=== PATIENT | female | born 1940 | race Caucasian/White ===

== ENCOUNTER 2016-07-02 12:36 | Inpatient (IN) | payer OTHER, BC ==
[~2016-07-02] VITALS: Ht 162.6 cm; Wt 86.3 kg
[~2016-07-02 12:36] MED LIST: ACET1TAB84 PO; ALBUAER2 INH; ATR25 PO; BND25X PO; CNT PO; DTRSR4 PO; GABA-113 PO; GEMF600T3 PO; GLC500 PO; IMD/2 PO; MOME50SP5 NAE; PRLSR20 PO; SYN75 PO
[2016-07-02] MEDS ORDERED: SYN75 PO (13:21)
[2016-07-02] MEDS ORDERED: MOME6000 (13:21)
[2016-07-02] MEDS ORDERED: VNTHFA/IN INH (13:21)
[2016-07-02] MEDS ORDERED: OMEP20CA9 PO (13:21)
[2016-07-02] MEDS ORDERED: GLC500 PO (13:21)
[2016-07-02] MEDS ORDERED: ATR25 PO (13:21)
[2016-07-02] MEDS ORDERED: TOLT4CAP PO (13:21)
[2016-07-02] MEDS ORDERED: MELA10TA2 PO (13:22)
[2016-07-02] MEDS ORDERED: ASPI81TA28 PO (13:22)
[2016-07-02] MEDS ORDERED: SODIUM CHLORIDE 0.9% 1000ML 1,000 ML IV SCH (14:02)
[2016-07-02] MEDS ORDERED: ONDANSETRON INJ 2 MG/ML 2 ML VIAL IV STA (14:05)
--- NOTE | 2016-07-02 14:10 | EMERGENCY ROOM VISIT NOTE ---
History Report prepared by Chava: Tashi Pollard Under the Supervision of: Dr. Nikolay Dawn D.O. First contact with patient: 13:51 Chief Complaint: HEADACHE Stated Complaint: SEVERE HEADACHE X3 DAYS History of Present Illness The patient is a 75 year old female who presents to the Emergency Room with complaints of a resolved episode of speech slurring that occurred three nights ago. The patient was sitting in bed when she was having trouble speaking and slurring her speech, as per her . He could not make out anything she was saying. The episode lasted approximately 5 minutes, and the patient returned to baseline afterwards. The symptoms resemble a TIA she had years ago. The patient denies any facial drooping, weakness or numbness of the extremities, or difficulty ambulating. She has had a persistent headache for the past three days , including when she had the speech slur. The patient vomited that same night. She also has some neck pain. The patient denies any fevers, chest pain, urinary symptoms, or rashes. The patient has not seen her primary doctor since the speech slurring episode. She has a history of atrial fibrillation but is not currently on any blood thinners. She denies any history of cancer. Source of History: patient, spouse/significant other Onset: three nights ago Position: other (global) Quality: other (speech slurring) Timing: resolved Associated Symptoms: + headache, + neck pain, + vomiting, No chest pain, No fevers, No numbness, No rash, No urinary symptoms, No weakness Review of Systems See HPI for pertinent positives & negatives. A total of 10 systems reviewed and were otherwise negative. Past Medical & Surgical Medical Problems: (1) Asthma (2) CKD (chronic kidney disease), stage III (3) CVA (cerebral vascular accident) (4) DM type 2 (diabetes mellitus, type 2) (5) Dyslipidemia (6) GERD (gastroesophageal reflux disease) (7) HTN (hypertension) (8) Hypothyroidism (9) IBS (irritable bowel syndrome) Surgical Problems: (1) History of appendectomy (2) History of hysterectomy (3) History of total right knee replacement (4) S/P lumbar fusion (5) Status post left partial knee replacement Family History FH: HTN (hypertension) FH: cancer FH: diabetes mellitus Social History Smoking Status: Never Smoker Alcohol Use: none Marital Status: Current/Historical Medications Scheduled Albuterol Hfa (Ventolin Hfa), 2-4 PUFFS INH Q6H Cetirizine (Zyrtec), 10 MG PO DAILY PRN Gabapentin (Neurontin), 100 MG PO TID Hyoscyamine Sulfate (Levsin), 0.125 MG PO DAILY PRN Levothyroxine Sodium (Synthroid), 75 MCG PO DAILY Loperamide Hcl (Imodium), 2 MG PO BID PRN Losartan Potassium (Cozaar), 1 TAB PO DAILY Melatonin (Melatonin), 10 MG PO HS Metformin HCl (Metformin HCl), 500 MG PO BID Omeprazole (Prilosec), 20 MG PO DAILY Simvastatin (Zocor), 40 MG PO HS Sitagliptin Phosphate (Januvia), 1 TAB PO DAILY Tramadol Hcl (Ultram), 50 MG PO Q8HR PRN Scheduled PRN Hydroxyzine HCl (Hydroxyzine HCl), 25 MG PO Q6H PRN for Itching Mometasone Furoate (Nasal) (Mometasone Furoate), 2 SPRAYS NA DAILY PRN for congestion Allergies Coded Allergies: Cephalosporins (Verified Allergy, Intermediate, Rash, tongue swells, ) Latex1 -Allergic Contact Dermititis (Unverified Allergy, Intermediate, LIP SWELLS, 07/02/16) Penicillins (Verified Allergy, Intermediate, Rash, tongue swells, 07/02/16) KIMMY Inhibitors (Verified Allergy, Mild, OTHER, 07/02/16) TONGUE SWOLLEN Aspirin (Verified Allergy, Unknown, 07/02/16) Cortisone (Verified Allergy, Unknown, Unknown Rxn, 07/02/16) Furosemide (Verified Allergy, Unknown, 07/02/16) Iodine (Verified Allergy, Unknown, Unknown rxn, 07/02/16) Piroxicam (Verified Allergy, Unknown, Unknown Rxn, 07/02/16) Sulfa Drugs (Verified Allergy, Unknown, 07/02/16) Sulfamethoxazole (Verified Allergy, Unknown, 07/02/16) Physical Exam Vital Signs Date Time Temp Pulse Resp B/P Pulse Ox O2 Delivery O2 Flow Rate FiO2 07/02/16 19:35 92 18 124/100 98 Room Air 07/02/16 17:59 94 18 175/76 96 Room Air 07/02/16 15:45 91 18 176/85 97 Room Air 07/02/16 14:51 96 Room Air 07/02/16 14:48 76 16 173/91 98 Room Air 07/02/16 12:46 36.8 81 18 204/97 99 Room Air Physical Exam GENERAL: Patient is awake, alert, and in no acute distress. Patient is resting comfortably and showing no signs of anxiety EYES: The conjunctivae are clear. The pupils are round and reactive. EARS, NOSE, MOUTH AND THROAT: The nose is without any evidence of any deformity. Mucous membranes are moist tongue is midline NECK: The neck is nontender and supple. RESPIRATORY: Normal respiratory effort is noted there is no evidence of wheezing rhonchi or rales CARDIOVASCULAR: Regular rate and rhythm noted there no murmurs rubs or gallops normal S1 normal S2 GASTROINTESTINAL: The abdomen is soft. Bowel sounds are present in all quadrants. Abdomen is nontender MUSCULOSKELETAL/EXTREMITIES: There is no evidence of gross deformity full range of motion is noted in the hips and shoulders SKIN: There is no obvious evidence of any rash. There are no petechiae, pallor or cyanosis noted. Trace pedal edema noted bilaterally. NEUROLOGIC: Patient is awake alert and oriented x3 strength is symmetric patellar reflexes are 2+ bilaterally Medical Decision & Procedures ER Provider Diagnostic Interpretation: Radiology results as stated below per my review and radiologist interpretation: CT HEAD WITHOUT CONTRAST (CT) CLINICAL HISTORY: Persistent frontal headache, stroke like symptoms. COMPARISON STUDY: No previous studies for comparison. TECHNIQUE: Axial CT of the brain is performed from the vertex to the skull base. IV contrast was not administered for this examination. CT DOSE: 537.48 mGy.cm FINDINGS: No intra or extra-axial mass lesions are visualized. There is no CT evidence of acute cortical infarction. There is no evidence of midline shift. There is no acute hemorrhage. No calvarial fractures are visualized. There are patchy white matter hypodensities likely on a small vessel basis. There is an old lacunar infarct involving the right caudate and anterior aspect of the right lentiform nucleus. There is no evidence of pathologic ventricular dilatation. There is no evidence of acute sinusitis IMPRESSION: Old right basal ganglial infarct. No acute intracranial findings. Electronically signed by: Stewart Urias M.D. 07/02/2016 3:20 PM Dictated Date/Time: 07/02/2016 3:19 PM CHEST ONE VIEW PORTABLE CLINICAL HISTORY: Stroke dyspnea COMPARISON STUDY: 10/13/2009 FINDINGS: The bones soft tissues and hemidiaphragms are normal. The cardiomediastinal silhouette is normal. The lungs are clear. The pulmonary vasculature is normal. IMPRESSION: Negative chest. Electronically signed by: Tim Jara M.D. 07/02/2016 2:36 PM Dictated Date/Time: 07/02/2016 2:36 PM Laboratory Results Test 07/02/16 14:35 07/02/16 15:51 Immature Granulocyte % (Auto) 0.1 % White Blood Count 8.22 K/uL (4.8-10.8) Red Blood Count 4.39 M/uL (4.2-5.4) Hemoglobin 13.0 g/dL (12.0-16.0) Hematocrit 38.9 % (37-47) Mean Corpuscular Volume 88.6 fL (80-100) Mean Corpuscular Hemoglobin 29.6 pg (25-34) Mean Corpuscular Hemoglobin Concent 33.4 g/dl (32-36) Platelet Count 223 K/uL (130-400) Mean Platelet Volume 10.5 fL (7.4-10.4) Neutrophils (%) (Auto) 76.4 % Lymphocytes (%) (Auto) 15.3 % Monocytes (%) (Auto) 5.7 % Eosinophils (%) (Auto) 2.3 % Basophils (%) (Auto) 0.2 % Neutrophils # (Auto) 6.27 K/uL (1.4-6.5) Lymphocytes # (Auto) 1.26 K/uL (1.2-3.4) Monocytes # (Auto) 0.47 K/uL (0.11-0.59) Eosinophils # (Auto) 0.19 K/uL (0-0.5) Basophils # (Auto) 0.02 K/uL (0-0.2) Immature Granulocyte # (Auto) 0.01 K/uL (0.00-0.02) Prothrombin Time 10.5 SECONDS (9.0-12.0) Prothromb Time International Ratio 1.0 (0.9-1.1) Activated Partial Thromboplast Time 27.6 SECONDS (21.0-31.0) Partial Thromboplastin Ratio 1.1 Magnesium Level 1.4 mg/dl (1.8-2.4) Total Bilirubin 0.3 mg/dl (0.2-1) Direct Bilirubin < 0.1 mg/dl (0-0.2) Aspartate Amino Transf (AST/SGOT) 15 U/L (15-37) Alanine Aminotransferase (ALT/SGPT) 21 U/L (12-78) Alkaline Phosphatase 76 U/L (45-117) Total Creatine Kinase 66 U/L (26-192) Creatine Kinase MB 1.3 ng/ml (0.5-3.6) Creatine Kinase MB Ratio 2.0 (0-3.0) Troponin I < 0.015 ng/ml (0-0.045) Total Protein 6.6 gm/dl (6.4-8.2) Albumin 3.6 gm/dl (3.4-5.0) Urine Color YELLOW Urine Appearance CLEAR (CLEAR) Urine pH 6.0 (4.5-7.5) Urine Specific [place] 1.024 (1.000-1.030) Urine Protein 1+ (NEG) Urine Glucose (UA) NEG (NEG) Urine Ketones TRACE (NEG) Urine Occult Blood NEG (NEG) Urine Nitrite NEG (NEG) Urine Bilirubin NEG (NEG) Urine Urobilinogen NEG (NEG) Urine Leukocyte Esterase NEG (NEG) Urine WBC (Auto) 1-5 /hpf (0-5) Urine RBC (Auto) 0-4 /hpf (0-4) Urine Hyaline Casts (Auto) 1-5 /lpf (0-5) Urine Epithelial Cells (Auto) >30 /lpf (0-5) Urine Bacteria (Auto) NEG (NEG) Urine Opiates Screen POS (NEG) Urine Methadone, Qualitative NEG (NEG) Urine Barbiturates NEG (NEG) Urine Phencyclidine (PCP) Level NEG (NEG) Ur Amphetamine/Methamphetamine NEG (NEG) MDMA (Ecstasy) Screen NEG (NEG) Urine Benzodiazepines Screen NEG (NEG) Urine Cocaine Metabolite NEG (NEG) Urine Marijuana (THC) NEG (NEG) Laboratory results per my review. Medications Administered Medications (Trade) Dose Ordered Sig/Link Route Start Time Stop Time Status Last Admin Dose Admin Sodium Chloride (Nss 1000ml) 1,000 ml @ 50 mls/hr Q20H IV 07/02/16 14:02 07/03/16 01:43 DC 07/02/16 22:40 50 MLS/HR Ondansetron HCl (Zofran Inj) 4 mg NOW STAT IV 07/02/16 14:05 07/02/16 14:06 DC 07/02/16 14:50 4 MG Morphine Sulfate (MoRPHine SULFATE INJ) 4 mg Q15M PRN IV 07/02/16 14:15 07/03/16 01:43 DC 07/02/16 15:45 4 MG Acetaminophen (Tylenol Tab) 650 mg Q4H PRN PO 07/02/16 17:45 08/01/16 17:44 07/02/16 18:00 650 MG Ondansetron HCl (Zofran Inj) 4 mg Q6H PRN IV 07/02/16 17:45 08/01/16 17:44 07/02/16 23:36 4 MG Tramadol HCl (Ultram Tab) 50 mg Q8H PRN PO 07/02/16 18:00 08/01/16 17:59 07/03/16 07:44 50 MG ECG Indication: weakness Rate (beats per minute): 78 Rhythm: normal sinus Findings: PAC, no acute ischemic change Change: no significant change (10/26/2009) ED Course 1400: The patient was evaluated in room B4b. A complete history and physical examination were performed. 1402: NSS 1000 ml @ 50 mls/hr. 1405: Zofran 4 mg IV. 1415: Morphine Sulfate 4 mg IV. 1630: Updated the patient. 1639: Spoke with Nelda Pina PA-C, [facility]. The patient will be evaluated. Medical Decision Prior records/ancillary studies reviewed. Triage Nursing notes reviewed and agree them. The patient's history was concerning for headache. Differential diagnosis: Etiologies such as migraine headache, meningitis, sinusitis, CO exposure, ICH, SAH, infection, tumor, headache, sinus thrombosis, arterial dissection, as well as others were entertained. The patient is a 75-year-old female who presented to the emergency department for an evaluation of headache. The patient's significant other presented to the emergency department with her and states that she started having very severe symptoms over the weekend which she felt were consistent with stroke. He describes right facial droop and dysarthria. She apparently had a similar episode in the past. She does not have a history of known strokes but on CAT scan she was found have signs of a previous stroke. This did not appear to be in an area of the brain that would explain the symptoms over the weekend. I do feel this makes her at higher risk for having another CVA especially given her symptoms that she had over the weekend. The patient was treated with IV fluids and IV pain medication for the headache and felt much better on subsequent reevaluation. I discussed the patient's laboratory and radiographic studies with her. I also [facility] They've agreed to evaluate the patient in emergency department for further management and disposition. Consults Time Called: 1629 Consulting Physician: Nelda Pina PA-C, Kathleen Rodrigues. Returned Call: [phone]: Spoke with Nel[facility] Pina PA-C, [facility] The patient will be evaluated. Impression Primary Impression: TIA (transient ischemic attack) Additional Impression: Right-sided headache Scribe Attestation The scribe's documentation has been prepared under my direction and personally reviewed by me in its entirety. I confirm that the note above accurately reflects all work, treatment, procedures, and medical decision making performed by me. Departure Information Dispostion Being Evaluated By Hospitalist Referrals Lloyd Tse D.O. (PCP) Patient Instructions My [facility] Problem Qualifiers Primary Impression: TIA (transient ischemic attack) Transient cerebral ischemia type: unspecified Qualified Codes: G45.9 - Transient cerebral ischemic attack, unspecified
--- NOTE | 2016-07-02 14:37 | DIAGNOSTIC IMAGING REPORT ---
CHEST ONE VIEW PORTABLE CLINICAL HISTORY: Stroke dyspnea COMPARISON STUDY: 10/13/2009 FINDINGS: The bones soft tissues and hemidiaphragms are normal. The cardiomediastinal silhouette is normal. The lungs are clear. The pulmonary vasculature is normal. IMPRESSION: Negative chest. Electronically signed by: Tim Jara M.D. 07/02/2016 2:36 PM Dictated Date/Time: 07/02/2016 2:36 PM
[2016-07-02] MEDS: MoRPHine SULFATE 4 MG/ML 1 ML CARP\\VIAL IV PRN ×2 (14:50→15:45)
[2016-07-02 14:55] LABS: BASO % 0.2 %; BASO ABS # 0.02 K/uL (0-0.2); COMPLETE YES; EOS % 2.3 %; HEMATOCRIT 38.9 % (37-47); IG% 0.1 %; LYMPH % 15.3 %; LYMPH ABS # 1.26 K/uL (1.2-3.4); MEAN CELL VOLUME 88.6 fL (80-100); MEAN CORPUSCULAR HEMOGLOBIN 29.6 pg (25-34); MEAN CORPUSCULAR HGB CONC 33.4 g/dl (32-36); MEAN PLATELET VOLUME 10.5 fL (7.4-10.4); MONO % 5.7 %; NEUT % 76.4 %; PLATELET COUNT 223 K/uL (130-400); RED BLOOD COUNT 4.39 M/uL (4.2-5.4); WHITE BLOOD COUNT 8.22 K/uL (4.8-10.8)
[2016-07-02 15:08] LABS: PARTIAL THROMBOPLASTIN RATIO 1.1; PROTHROMBIN TIME (PATIENT) 10.5 SECONDS (9.0-12.0)
[2016-07-02 15:12] LABS: ALT/SGPT 21 U/L (12-78); AST/SGOT 15 U/L (15-37); BLOOD UREA NITROGEN 11 mg/dl (7-18); BUN/CREATININE RATIO 9.5 (10-20); CALCIUM 8.3 mg/dl (8.5-10.1); CARBON DIOXIDE 29 mmol/L (21-32); CHLORIDE 103 mmol/L (98-107); GLUCOSE 109 mg/dl (70-99); POTASSIUM 3.3 mmol/L (3.5-5.1); SODIUM 141 mmol/L (136-145)
[2016-07-02] MEDS ORDERED: CETI10TA84 PO (15:13)
[2016-07-02] MEDS ORDERED: SIMV40TA2 PO (15:13)
[2016-07-02] MEDS ORDERED: TRAZ50TA35 PO (15:13)
[2016-07-02 15:17] LABS: ALKALINE PHOSPHATASE 76 U/L (45-117)
--- NOTE | 2016-07-02 15:21 | DIAGNOSTIC IMAGING REPORT ---
CT HEAD WITHOUT CONTRAST (CT) CLINICAL HISTORY: Persistent frontal headache, stroke like symptoms. COMPARISON STUDY: No previous studies for comparison. TECHNIQUE: Axial CT of the brain is performed from the vertex to the skull base. IV contrast was not administered for this examination. CT DOSE: 537.48 mGy.cm FINDINGS: No intra or extra-axial mass lesions are visualized. There is no CT evidence of acute cortical infarction. There is no evidence of midline shift. There is no acute hemorrhage. No calvarial fractures are visualized. There are patchy white matter hypodensities likely on a small vessel basis. There is an old lacunar infarct involving the right caudate and anterior aspect of the right lentiform nucleus. There is no evidence of pathologic ventricular dilatation. There is no evidence of acute sinusitis IMPRESSION: Old right basal ganglial infarct. No acute intracranial findings. Electronically signed by: Stewart Urias M.D. 07/02/2016 3:20 PM Dictated Date/Time: 07/02/2016 3:19 PM
[2016-07-02 17:16] LABS: URINE APPEARANCE CLEAR (CLEAR); URINE BILIRUBIN NEG (NEG); URINE COLOR YELLOW; URINE EPITHELIAL CELL AUTO >30 /lpf (0-5); URINE NITRITE NEG (NEG); URINE SPECIFIC GRAVITY 1.024 (1.000-1.030); UROBILINOGEN NEG (NEG)
[2016-07-02 17:28] LABS: BENZODIAZEPINE, URINE NEG (NEG); COCAINE,URINE NEG (NEG); PHENCYCLIDINE, URINE NEG (NEG)
[2016-07-02 17:30] LABS: MANUAL MICROSCOPIC REQUIRED? NO; REVIEW REQ? NO
[2016-07-02] MEDS ORDERED: ONDANSETRON INJ 2 MG/ML 2 ML VIAL IV PRN (17:45)
[2016-07-02] MEDS ORDERED: ACETAMINOPHEN 325 MG TAB PO PRN (17:45)
[2016-07-02] MEDS ORDERED: LOSA1TAB PO (17:53)
[2016-07-02] MEDS ORDERED: SITA50TA PO (17:53)
[2016-07-02] MEDS ORDERED: GABA-112 PO (17:53)
[2016-07-02] MEDS ORDERED: DEXTROSE 50% 50 ML SYR IV PRN (18:00)
[2016-07-02] MEDS ORDERED: GLUCAGON FOR INJ 1 MG VIAL SQ PRN (18:00)
[2016-07-02] MEDS ORDERED: GLUCOSE 10 TABS/TUBE PO PRN (18:00)
[2016-07-02] MEDS ORDERED: PHARMACIST DISCHARGE MED REC CONSULT PRN (18:00)
[2016-07-02] MEDS ORDERED: GLUCOSE 40% GEL 15 GM TUBE PO PRN (18:00)
[2016-07-02] MEDS ORDERED: TRAMADOL HCL 50 MG TAB PO PRN (18:00)
--- NOTE | 2016-07-02 19:01 | History and Physical ---
History & Physical Date & Time of Service: Jul 02, 2016 at 18:45 Chief Complaint: Headache Primary Care Physician: Lloyd Tse D.OEtelvina History of Present Illness 75 year old female who presents to the ER with headache. Patient reports 4 days ago she woke up with a frontal headache. Later in the day she had right sided facial droop and difficulty speaking and slurring of her words. reports this last 5 minutes and resolved on its own. Patient has history of CVA a few years ago that presented with similar symptoms. She reports she was never told to take aspirin and has an allergy to it. The same day she reports some nausea and vomiting. She denies hematemesis or coffee ground emesis. Patient denies any unilateral weakness, numbness, or tingling. She reports mild dizziness but no syncopal events. She denies any further episodes of facial droop or slurred speech. Patient reports her headache has been persistent. She reports it is located frontal, temporal, and on top of her head. She denies blurred or double vision. No chest pain or shortness of breath. No abdominal pain or diarrhea. She denies fever and chills. No urinary symptoms. In the ER, patient's BP was elevated 204/97 however is improving on it's own. Patient reports to feeling anxious when she first arrived. She reports her headache has improved. CT head is negative. Labs are unremarkable. Past Medical/Surgical History Medical Problems: (1) Asthma Status: Chronic (2) CKD (chronic kidney disease), stage III Status: Chronic (3) CVA (cerebral vascular accident) Status: Chronic (4) DM type 2 (diabetes mellitus, type 2) Status: Chronic (5) Dyslipidemia Status: Chronic (6) GERD (gastroesophageal reflux disease) Status: Chronic (7) HTN (hypertension) Status: Chronic (8) Hypothyroidism Status: Chronic (9) IBS (irritable bowel syndrome) Status: Chronic Surgical Problems: (1) History of appendectomy Status: Chronic (2) History of hysterectomy Status: Chronic (3) History of total right knee replacement Status: Chronic (4) S/P lumbar fusion Status: Chronic (5) Status post left partial knee replacement Status: Chronic Social History Smoking Status: Never Smoker Alcohol Use: occasionally Marital Status: Housing status: lives with family Immunizations History of Influenza Vaccine: Yes Influenza Vaccine Date: May 07, 2016 History of Tetanus Vaccine?: Yes Tetanus Immunization Date: Mar 09, 2015 History of Pneumococcal: Yes Pneumococcal Date: Feb 23, 2015 Multi-Drug Resistant Organisms History of MDRO: No Allergies Coded Allergies: Cephalosporins (Verified Allergy, Intermediate, Rash, tongue swells, ) Latex1 -Allergic Contact Dermititis (Unverified Allergy, Intermediate, LIP SWELLS, 07/02/16) Penicillins (Verified Allergy, Intermediate, Rash, tongue swells, 07/02/16) KIMMY Inhibitors (Verified Allergy, Mild, OTHER, 07/02/16) TONGUE SWOLLEN Aspirin (Verified Allergy, Unknown, 07/02/16) Cortisone (Verified Allergy, Unknown, Unknown Rxn, 07/02/16) Furosemide (Verified Allergy, Unknown, 07/02/16) Iodine (Verified Allergy, Unknown, Unknown rxn, 07/02/16) Piroxicam (Verified Allergy, Unknown, Unknown Rxn, 07/02/16) Sulfa Drugs (Verified Allergy, Unknown, 07/02/16) Sulfamethoxazole (Verified Allergy, Unknown, 07/02/16) Home Medications Scheduled Albuterol Hfa (Ventolin Hfa), 2-4 PUFFS INH Q6H Cetirizine (Zyrtec), 10 MG PO DAILY PRN Gabapentin (Neurontin), 100 MG PO TID Hyoscyamine Sulfate (Levsin), 0.125 MG PO DAILY PRN Levothyroxine Sodium (Synthroid), 75 MCG PO DAILY Loperamide Hcl (Imodium), 2 MG PO BID PRN Losartan Potassium (Cozaar), 1 TAB PO DAILY Melatonin (Melatonin), 10 MG PO HS Metformin HCl (Metformin HCl), 500 MG PO BID Omeprazole (Prilosec), 20 MG PO DAILY Simvastatin (Zocor), 40 MG PO HS Sitagliptin Phosphate (Januvia), 1 TAB PO DAILY Tramadol Hcl (Ultram), 50 MG PO Q8HR PRN Scheduled PRN Hydroxyzine HCl (Hydroxyzine HCl), 25 MG PO Q6H PRN for Itching Mometasone Furoate (Nasal) (Mometasone Furoate), 2 SPRAYS NA DAILY PRN for congestion Review of Systems 10 point review of systems was completed with the pertinent positives and negatives noted per the HPI Physical Exam Vital Signs Date Time Temp Pulse Resp B/P Pulse Ox O2 Delivery O2 Flow Rate FiO2 07/02/16 17:59 94 18 175/76 96 Room Air 07/02/16 15:45 91 18 176/85 97 Room Air 07/02/16 14:51 96 Room Air 07/02/16 14:48 76 16 173/91 98 Room Air 07/02/16 12:46 36.8 81 18 204/97 99 Room Air General Appearance: no apparent distress Head: normocephalic Eyes: normal inspection ENT: hearing grossly normal Neck: supple, no JVD Respiratory/Chest: lungs clear, normal breath sounds, no respiratory distress Cardiovascular: regular rate, rhythm, no edema, normal peripheral pulses Abdomen/GI: normal bowel sounds, non tender, soft Extremities/Musculoskelatal: normal inspection, no calf tenderness Neurologic/Psych: no motor/sensory deficits, alert, normal mood/affect, oriented x 3 Skin: normal color, warm/dry Diagnostics Laboratory Results Results Past 24 Hours Test 07/02/16 14:35 07/02/16 15:51 Range/Units White Blood Count 8.22 4.8-10.8 K/uL Red Blood Count 4.39 4.2-5.4 M/uL Hemoglobin 13.0 12.0-16.0 g/dL Hematocrit 38.9 37-47 % Mean Corpuscular Volume 88.6 80-100 fL Mean Corpuscular Hemoglobin 29.6 25-34 pg Mean Corpuscular Hemoglobin Concent 33.4 32-36 g/dl Platelet Count 223 130-400 K/uL Mean Platelet Volume 10.5 7.4-10.4 fL Neutrophils (%) (Auto) 76.4 % Lymphocytes (%) (Auto) 15.3 % Monocytes (%) (Auto) 5.7 % Eosinophils (%) (Auto) 2.3 % Basophils (%) (Auto) 0.2 % Neutrophils # (Auto) 6.27 1.4-6.5 K/uL Lymphocytes # (Auto) 1.26 1.2-3.4 K/uL Monocytes # (Auto) 0.47 0.11-0.59 K/uL Eosinophils # (Auto) 0.19 0-0.5 K/uL Basophils # (Auto) 0.02 0-0.2 K/uL RDW Standard Deviation 45.7 36.4-46.3 fL RDW Coefficient of Variation 14.1 11.5-14.5 % Immature Granulocyte % (Auto) 0.1 % Immature Granulocyte # (Auto) 0.01 0.00-0.02 K/uL Prothrombin Time 10.5 9.0-12.0 SECONDS Prothromb Time International Ratio 1.0 0.9-1.1 Activated Partial Thromboplast Time 27.6 21.0-31.0 SECONDS Partial Thromboplastin Ratio 1.1 Sodium Level 141 136-145 mmol/L Potassium Level 3.3 3.5-5.1 mmol/L Chloride Level 103 98-107 mmol/L Carbon Dioxide Level 29 21-32 mmol/L Anion Gap 9.0 3-11 mmol/L Blood Urea Nitrogen 11 7-18 mg/dl Creatinine 1.20 0.60-1.20 mg/dl Est Creatinine Clear Calc Drug Dose 41.9 ml/min Estimated GFR () 50.5 Estimated GFR (Non- 43.6 BUN/Creatinine Ratio 9.5 10-20 Random Glucose 109 70-99 mg/dl Calcium Level 8.3 8.5-10.1 mg/dl Magnesium Level 1.4 1.8-2.4 mg/dl Total Bilirubin 0.3 0.2-1 mg/dl Direct Bilirubin < 0.1 0-0.2 mg/dl Aspartate Amino Transf (AST/SGOT) 15 15-37 U/L Alanine Aminotransferase (ALT/SGPT) 21 12-78 U/L Alkaline Phosphatase 76 45-117 U/L Total Creatine Kinase 66 26-192 U/L Creatine Kinase MB 1.3 0.5-3.6 ng/ml Creatine Kinase MB Ratio 2.0 0-3.0 Troponin I < 0.015 0-0.045 ng/ml Total Protein 6.6 6.4-8.2 gm/dl Albumin 3.6 3.4-5.0 gm/dl Urine Color YELLOW Urine Appearance CLEAR CLEAR Urine pH 6.0 4.5-7.5 Urine Specific [place] 1.024 1.000-1.030 Urine Protein 1+ NEG Urine Glucose (UA) NEG NEG Urine Ketones TRACE NEG Urine Occult Blood NEG NEG Urine Nitrite NEG NEG Urine Bilirubin NEG NEG Urine Urobilinogen NEG NEG Urine Leukocyte Esterase NEG NEG Urine WBC (Auto) 1-5 0-5 /hpf Urine RBC (Auto) 0-4 0-4 /hpf Urine Hyaline Casts (Auto) 1-5 0-5 /lpf Urine Epithelial Cells (Auto) >30 0-5 /lpf Urine Bacteria (Auto) NEG NEG Urine Opiates Screen POS NEG Urine Methadone, Qualitative NEG NEG Urine Barbiturates NEG NEG Urine Phencyclidine (PCP) Level NEG NEG Ur Amphetamine/Methamphetamine NEG NEG MDMA (Ecstasy) Screen NEG NEG Urine Benzodiazepines Screen NEG NEG Urine Cocaine Metabolite NEG NEG Urine Marijuana (THC) NEG NEG Diagnostic Radiology HEAD CT IMPRESSION: Old right basal ganglial infarct. No acute intracranial findings. CXR IMPRESSION: Negative chest. Impression Assessment and Plan RIGHT FACIAL DROOP, SLURRED SPEECH - RESOLVED, ? TIA vs CVA - admit to tele - patient presenting with 5 minute episode of right facial droop and slurred speech 4 days ago which has resolved, now has persistent headache - CT head in ED negative - hx of CVA a few years ago - does not take ASA due to allergy (tongue swelling) ; not on Plavix - will start Plavix, continue statin - check MRI/MRA brain, neck MRA, echo - BP elevated in ED - 204/97, ? if symptoms are due to hypertensive urgency; BP improving without intervention, will allow SBP to run in the 170s for permissive HTN due to possible CVA HTN - noted above - for now, continue Losartan, allowing permissive HTN for possible CVA DM - hgb a1c 6.4 07/2015 - hold oral agents and utilize SSI while hospitalized HYPOTHYROIDISM - continue levothyroxine DVT PROPHYLAXIS - SCDs for now until MRI resulted CODE STATUS - Patient is a full code as per my discussion with her. DISPO - In my clinical judgment this beneficiary meets acute admission criteria, established by [facility], that includes being hospitalized through two midnights. Agree with above H and P. 75f with hx of cva presents with stroke like symptoms. leonora says last friday after waking up from sleep in the evening her noticed her mouth was dropped to right side and had slurred speech for about 5 minutes and symptoms subsided but she developed severe right sided headache since then which is not getting better. denies any weakness in extremities and was ambulating fine.Today had some dizziness. No blurred vision. No chest pain or sob. No fevers.Pain resolved with pain meds in Er. Currently resting comfortably and conversing normally p/e Ge not in distress Cvs s1 and s2 heard no murmurs Rs cta b/l no added sounds Abd benign Bicycle Mechanic non focal Ext no erythema a/p CVA vs TIA ct head negative f/u mri head started on Plavix as has allergy to aspirin HTn continue home meds monitor BP if mri negative will tightly control the BP VTE Prophylaxis VTE Risk Assessment Done? Y/N: Yes Risk Level: Moderate
[2016-07-02] MEDS ORDERED: ULT/50 PO (19:12)
[2016-07-02] MEDS ORDERED: SITA100T3 PO (19:12)
[2016-07-02] MEDS ORDERED: HYOS1TAB PO (19:12)
[2016-07-02 20:24] VITALS: BP 172/84; PULSE 90; TEMP 36.8; O2SAT 92
[2016-07-02 20:26] VITALS: Ht 162.6 cm; Wt 86.3 kg
[2016-07-02 20:53] VITALS: O2SAT 98
[2016-07-02] MEDS ORDERED: POTASSIUM CHLORIDE 20 MEQ TABCR PO ONE (21:00)
[2016-07-02] MEDS: INSULIN ASPART 100 UNITS/ML 3 ML PEN SC SCH (21:00)
[2016-07-02] MEDS ORDERED: CLOPIDOGREL BISULFATE 75 MG TAB PO ONE (21:00)
[2016-07-02] MEDS ORDERED: SIMVASTATIN 40 MG TAB PO SCH (21:00)
--- NOTE | 2016-07-02 22:16 | DIAGNOSTIC IMAGING REPORT ---
Brain MRA HISTORY: Headaches. Stroke like symptoms. TECHNIQUE: 3-D [id number] MRA of the brain was performed without contrast. COMPARISON STUDY: None. FINDINGS: Motion artifact resulting in suboptimal evaluation of the cerebral arteries. However, there is no definite stenosis, occlusion, or aneurysm identified within the bilateral MCAs, ACAs, child health associate. The right P1 segment is hypoplastic. There is also a hypoplastic distal right vertebral artery. However, the distal vertebral arteries, basilar artery, bilateral intracranial internal carotid arteries are also likely patent. IMPRESSION: Suboptimal evaluation of the intracranial vessels due to the motion artifact. However, no definite stenosis, occlusion, or aneurysm identified. Electronically signed by: Eron Fang M.D. 07/02/2016 10:15 PM Dictated Date/Time: 07/02/2016 10:10 PM
[2016-07-02] MEDS: MAGNESIUM SULFATE 1GM / D5W 1 GM in PREMIXED IN D5W 100 ML IV SCH ×2 (22:41→23:37)
--- NOTE | 2016-07-02 22:44 | DIAGNOSTIC IMAGING REPORT ---
Brain MRI WITH AND WITHOUT CONTRAST HISTORY: Headaches. Stroke like symptoms. TECHNIQUE: Multiplanar multisequence MRI of the brain was performed both before and after the intravenous administration of contrast. COMPARISON STUDY: None. FINDINGS: There is no mass, hematoma, midline shift, or acute infarct. The paranasal sinuses are clear. The mastoid or cells are clear. The ventricles and sulci demonstrate mild age-related involutional changes. Scattered foci of T2 hyperintensity seen within the periventricular and subcortical white matter are nonspecific but suggestive of mild microvascular ischemic changes. The major vascular flow voids at the skull base are well-maintained. Mild motion artifact. There is an old right basal ganglia infarct. No abnormal enhancement. IMPRESSION: Motion artifact. No definite acute intracranial abnormality. Atrophy and microvascular ischemic changes. Old right basal ganglia infarct. Electronically signed by: Eron Fang M.D. 07/02/2016 10:43 PM Dictated Date/Time: 07/02/2016 10:38 PM
--- NOTE | 2016-07-02 22:50 | DIAGNOSTIC IMAGING REPORT ---
NECK MRA HISTORY: Stroke like symptoms. Headaches. TECHNIQUE: [id number] and gadolinium-enhanced MRA of the neck was performed both before and after the intravenous administration of contrast. All measurements were calculated based on NASCET criteria. COMPARISON STUDY: None. FINDINGS: Motion artifact results in suboptimal evaluation. The aortic arch appears be normal in caliber. Proximal left common carotid artery is not well visualized. However, the remaining portions of the left common carotid artery and the right common carotid artery are likely patent. The right internal carotid artery is likely patent. There is approximately 60-70% stenosis involving the proximal 1 cm of the left internal carotid artery. Remaining portions of the mid to distal left internal carotid artery are patent. There is a hypoplastic right vertebral artery which is likely patent. The dominant left vertebral artery appears to be patent. Focal linear defect within the mid right internal carotid artery is likely due to artifact. Possible mild narrowing versus motion artifact within the proximal left subclavian artery. IMPRESSION: 1. Suboptimal evaluation due to motion artifact. 2. There is suggestion of 60-70% stenosis involving the proximal left internal carotid artery. This should be confirmed with follow-up carotid Doppler study. 2. 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 3. Question stenosis within the left subclavian artery proximally may be due to motion artifact. Electronically signed by: Eron Fang M.D. 07/02/2016 10:48 PM Dictated Date/Time: 07/02/2016 10:43 PM
[2016-07-02] MEDS ORDERED: MAGNEVIST IV PRN (23:15)
[2016-07-02] MEDS: GABAPENTIN 100 MG CAP PO SCH (23:26)
[2016-07-02 23:42] VITALS: BP 159/84; PULSE 83; TEMP 36.8; O2SAT 95
[2016-07-03] VITALS (7 sets, daily range): BP systolic 137–190; BP diastolic 67–82; PULSE 86–90; TEMP 36.5–37; O2SAT 91–95
[2016-07-03] MEDS ORDERED: PROMETHAZINE HCL INJ 12.5 MG in SODIUM CHLORIDE 0.9% 50ML 50 ML IV PRN (01:30)
[2016-07-03] MEDS ORDERED: LEVOTHYROXINE 75 MCG TAB PO SCH (06:30)
[2016-07-03 06:59] LABS: HEMATOCRIT 38.1 % (37-47); MEAN CELL VOLUME 87.6 fL (80-100); MEAN CORPUSCULAR HEMOGLOBIN 29.4 pg (25-34); MEAN CORPUSCULAR HGB CONC 33.6 g/dl (32-36); MEAN PLATELET VOLUME 10.1 fL (7.4-10.4); PLATELET COUNT 225 K/uL (130-400); RED BLOOD COUNT 4.35 M/uL (4.2-5.4); WHITE BLOOD COUNT 8.02 K/uL (4.8-10.8)
[2016-07-03 07:28] LABS: BUN/CREATININE RATIO 8.4 (10-20); CALCIUM 8.1 mg/dl (8.5-10.1); CREATININE 1.4 mg/dl (0.60-1.20); POTASSIUM 3.4 mmol/L (3.5-5.1)
[2016-07-03 07:31] LABS: CHOLESTEROL/HDL RATIO 3.1
[2016-07-03 07:55] LABS: ESTIMATED AVERAGE GLUCOSE 143 mg/dl; HA1C FLAG Normal (Normal)
[2016-07-03] MEDS ORDERED: PANTOprazole SOD 40 MG TAB PO SCH ×2 (09:00)
[2016-07-03] MEDS ORDERED: LOSARTAN POTASSIUM 25 MG TAB PO SCH (09:00)
[2016-07-03] MEDS ORDERED: CLOPIDOGREL BISULFATE 75 MG TAB PO SCH (09:00)
[2016-07-03] MEDS: GABAPENTIN 100 MG CAP PO SCH ×2 (09:20→14:00)
[2016-07-03] MEDS: INSULIN ASPART 100 UNITS/ML 3 ML PEN SC SCH ×3 (09:20→16:30)
--- NOTE | 2016-07-03 10:38 | DIAGNOSTIC IMAGING REPORT ---
BILATERAL CAROTID DOPPLER STUDY HISTORY: Mental status change. Abnormal MRA. f/u mra; possible left ICA stenosis COMPARISON: 07/02/2016 moderate plaque formation bilaterally TECHNIQUE: Real-time, grayscale, and color Doppler sonography of the carotid arteries was performed. Imaging reviewed in the transverse and longitudinal planes. All measurements were calculated based on NASCET criteria. FINDINGS: Antegrade flow is seen in the bilateral vertebral arteries. The brachial pressures are hemodynamically similar. The peak systolic velocity within the right ICA is 96. The right systolic ratio is 1.0. The peak systolic velocity within the left ICA is 110. The left systolic ratio is 1.1. IMPRESSION: No hemodynamically significant stenosis seen within the carotid arteries. Moderate plaque formation bilaterally. The MRI finding appears to be artifactual Electronically signed by: Tim Jara M.D. 07/03/2016 10:37 AM Dictated Date/Time: 07/03/2016 10:36 AM
[2016-07-03] MEDS ORDERED: KETOROLAC TROMETHAMINE 15 MG/ML VIAL IV. PRN (11:00)
--- NOTE | 2016-07-03 14:24 | Neurology Consultation ---
Neurology Consultation Date of Consultation: Jul 03, 2016. Attending Physician: Delmi Higuera MD Primary Care Physician: Lloyd Tse D.OEtelvina Reason for Consultation: TIA? History of Present Illness Source: patient, spouse Angie is a 75 year old female who has a PMH GERD, asthma, CKD III, DM, HTN, CVA, hypothyroid, IBS glaucoma presents with a 4 day frontal headache that she woke up with. Later in the day she had right sided facial droop and difficulty speaking and slurring of her words. reports this lasted 5 minutes and resolved on its own. She had a similar event 4 years ago. She was not started on plavix or aspirin at the time but was on coumadin at one point when she had her hip and knee surgeries. Her headache continued and that is why they reported to the ED. She reports it is located frontal, temporal, and on top of her head and she can reproduce some of the tenderness with palpation. At admission her BP was elevated 204/97.She denies, CP, SOB, abdominal pain, one sided weakness, numbness tingling, N, V. she does still have a headache but it has improved. Social History Smoking Status: Never smoker Alcohol Use: occasionally Marital Status: Allergies Coded Allergies: Cephalosporins (Verified Allergy, Intermediate, Rash, tongue swells, ) Latex1 -Allergic Contact Dermititis (Unverified Allergy, Intermediate, LIP SWELLS, 07/02/16) Penicillins (Verified Allergy, Intermediate, Rash, tongue swells, 07/02/16) KIMMY Inhibitors (Verified Allergy, Mild, OTHER, 07/02/16) TONGUE SWOLLEN Aspirin (Verified Allergy, Unknown, 07/02/16) Cortisone (Verified Allergy, Unknown, Unknown Rxn, 07/02/16) Furosemide (Verified Allergy, Unknown, 07/02/16) Iodine (Verified Allergy, Unknown, Unknown rxn, 07/02/16) Piroxicam (Verified Allergy, Unknown, Unknown Rxn, 07/02/16) Sulfa Drugs (Verified Allergy, Unknown, 07/02/16) Sulfamethoxazole (Verified Allergy, Unknown, 07/02/16) Current Inpatient Medications Current Inpatient Medications Medications (Trade) Dose Ordered Sig/Link Route Start Time Stop Time Status Last Admin Dose Admin Acetaminophen (Tylenol Tab) 650 mg Q4H PRN PO 07/02/16 17:45 08/01/16 17:44 07/02/16 18:00 650 MG Ondansetron HCl (Zofran Inj) 4 mg Q6H PRN IV 07/02/16 17:45 08/01/16 17:44 07/02/16 23:36 4 MG Miscellaneous Information (Pharmacist Discharge Med Rec Consult) 1 ea UD PRN N/A 07/02/16 18:00 08/01/16 17:59 Insulin Aspart (novoLOG ASPART) SLIDING SCALE If C... ACHS SC 07/02/16 21:00 08/01/16 20:59 07/03/16 09:20 1 UNITS Glucose (Glucose 40% Gel) 15-30 GRAMS 15 GRAMS... UD PRN PO 07/02/16 18:00 08/01/16 17:59 Glucose (Glucose Chew Tab) 4-8 Tablets 4 Tabl... UD PRN PO 07/02/16 18:00 08/01/16 17:59 Dextrose (Dextrose 50% 50ML Syringe) 25-50ML OF 50% DW IV FOR... UD PRN IV 07/02/16 18:00 08/01/16 17:59 Glucagon (Glucagon Inj) 1 mg UD PRN SQ 07/02/16 18:00 08/01/16 17:59 Gabapentin (Neurontin Cap) 100 mg TID PO 07/02/16 21:00 08/01/16 20:59 07/03/16 09:20 100 MG Levothyroxine Sodium (Synthroid Tab) 75 mcg DAILYBB PO 07/03/16 06:30 08/02/16 06:59 07/03/16 06:29 75 MCG Losartan Potassium (coZAAR TAB) 25 mg DAILY PO 07/03/16 09:00 08/02/16 08:59 07/03/16 07:45 25 MG Simvastatin (Zocor Tab) 40 mg HS PO 07/02/16 21:00 08/01/16 20:59 07/02/16 23:26 40 MG Tramadol HCl (Ultram Tab) 50 mg Q8H PRN PO 07/02/16 18:00 08/01/16 17:59 07/03/16 07:44 50 MG Clopidogrel Bisulfate (plAVix TAB) 75 mg QAM PO 07/03/16 09:00 08/02/16 08:59 07/03/16 09:21 75 MG Pantoprazole Sodium (Protonix Tab) 40 mg QAM PO 07/03/16 09:00 08/02/16 08:59 07/03/16 09:21 40 MG Gadopentetate Dimeglumine 20 ml 20 ml UD PRN IV 07/02/16 23:15 07/06/16 23:14 Promethazine HCl/ Sodium Chloride (Phenergan Inj/ Nss 50ml) 50.5 ml @ 204 mls/hr Q6H PRN IV 07/03/16 01:30 08/02/16 01:29 07/03/16 02:04 204 MLS/HR Ketorolac Tromethamine (Toradol Inj) 15 mg Q8 PRN IV. 07/03/16 11:00 07/08/16 10:59 07/03/16 11:12 15 MG Physical Exam Vital Signs (Past 24 Hrs): Date Time Temp Pulse Resp B/P Pulse Ox O2 Delivery O2 Flow Rate FiO2 07/03/16 12:00 Room Air 07/03/16 11:56 36.5 86 18 152/72 94 Room Air 07/03/16 09:30 90 158/82 07/03/16 08:00 95 Room Air 07/03/16 07:50 36.9 86 18 190/76 95 Room Air 07/03/16 05:24 36.7 87 16 144/77 91 Room Air 07/03/16 04:00 Room Air 07/03/16 00:00 Room Air 07/02/16 23:42 36.8 83 16 159/84 95 Room Air 07/02/16 20:53 98 Room Air 07/02/16 20:26 Room Air 07/02/16 20:24 36.8 90 18 172/84 92 Room Air 07/02/16 19:35 92 18 124/100 98 Room Air 07/02/16 17:59 94 18 175/76 96 Room Air 07/02/16 15:45 91 18 176/85 97 Room Air 07/02/16 14:51 96 Room Air 07/02/16 14:48 76 16 173/91 98 Room Air Physical Exam: Constitutional: appearance nourished, healthy and normal Ears, Nose, Mouth and Throat: mucous membranes moist, no injection and skin normal, eyes normal Cardiovascular: normal S-1 and S-2 and regular rate and rhythm Respiratory: clear to auscultation (CTA) and no rales, rhonchi or wheeze Musculoskeletal: no peripheral edema and good distal pulses Skin: no stigmata of neurocutaneous disease noted and normal and intact Eyes: extraocular muscles intact (EOMI) and pupils equal, round and reactive to light (PERRL) good vascular pulsations NEUROLOGIC EXAMINATION: Mental status: Alert and interactive Oriented to full date and location Oriented to person Speech fluent with no evidence of aphasia Cranial Nerves smile and eye brow raise is symmetric, tongue midline Reflexes: Deep tendon reflexes were symmetrical and graded 2/5. Plantar responses were flexor. Sensory: decreased sensation to vibration and GT proprioception is absent Coordination: slight romberg with eyes closed Gait/Stance: Posture normal. Gait normal: with steady with steps, base, turning,and tandem gait. Motor: Negative for pronator drift of out stretched arms with eyes closed. Strength: biceps triceps deltoid intrinsics bilaterally 5/5 hip flex plantar flex ext 5/5 bilaterally Laboratory Results Past 24 Hours: 07/03/16 06:31 07/03/16 06:31 Test 07/02/16 14:35 07/02/16 15:51 07/02/16 22:50 07/03/16 06:31 Immature Granulocyte % (Auto) 0.1 % White Blood Count 8.22 K/uL (4.8-10.8) Red Blood Count 4.39 M/uL (4.2-5.4) 4.35 M/uL (4.2-5.4) Hemoglobin 13.0 g/dL (12.0-16.0) Hematocrit 38.9 % (37-47) Mean Corpuscular Volume 88.6 fL (80-100) 87.6 fL (80-100) Mean Corpuscular Hemoglobin 29.6 pg (25-34) 29.4 pg (25-34) Mean Corpuscular Hemoglobin Concent 33.4 g/dl (32-36) 33.6 g/dl (32-36) Platelet Count 223 K/uL (130-400) Mean Platelet Volume 10.5 fL (7.4-10.4) 10.1 fL (7.4-10.4) Neutrophils (%) (Auto) 76.4 % Lymphocytes (%) (Auto) 15.3 % Monocytes (%) (Auto) 5.7 % Eosinophils (%) (Auto) 2.3 % Basophils (%) (Auto) 0.2 % Neutrophils # (Auto) 6.27 K/uL (1.4-6.5) Lymphocytes # (Auto) 1.26 K/uL (1.2-3.4) Monocytes # (Auto) 0.47 K/uL (0.11-0.59) Eosinophils # (Auto) 0.19 K/uL (0-0.5) Basophils # (Auto) 0.02 K/uL (0-0.2) Immature Granulocyte # (Auto) 0.01 K/uL (0.00-0.02) Prothrombin Time 10.5 SECONDS (9.0-12.0) Prothromb Time International Ratio 1.0 (0.9-1.1) Activated Partial Thromboplast Time 27.6 SECONDS (21.0-31.0) Partial Thromboplastin Ratio 1.1 Magnesium Level 1.4 mg/dl (1.8-2.4) Total Bilirubin 0.3 mg/dl (0.2-1) Direct Bilirubin < 0.1 mg/dl (0-0.2) Aspartate Amino Transf (AST/SGOT) 15 U/L (15-37) Alanine Aminotransferase (ALT/SGPT) 21 U/L (12-78) Alkaline Phosphatase 76 U/L (45-117) Total Creatine Kinase 66 U/L (26-192) Creatine Kinase MB 1.3 ng/ml (0.5-3.6) Creatine Kinase MB Ratio 2.0 (0-3.0) Troponin I < 0.015 ng/ml (0-0.045) Total Protein 6.6 gm/dl (6.4-8.2) Albumin 3.6 gm/dl (3.4-5.0) Urine Color YELLOW Urine Appearance CLEAR (CLEAR) Urine pH 6.0 (4.5-7.5) Urine Specific [place] 1.024 (1.000-1.030) Urine Protein 1+ (NEG) Urine Glucose (UA) NEG (NEG) Urine Ketones TRACE (NEG) Urine Occult Blood NEG (NEG) Urine Nitrite NEG (NEG) Urine Bilirubin NEG (NEG) Urine Urobilinogen NEG (NEG) Urine Leukocyte Esterase NEG (NEG) Urine WBC (Auto) 1-5 /hpf (0-5) Urine RBC (Auto) 0-4 /hpf (0-4) Urine Hyaline Casts (Auto) 1-5 /lpf (0-5) Urine Epithelial Cells (Auto) >30 /lpf (0-5) Urine Bacteria (Auto) NEG (NEG) Urine Opiates Screen POS (NEG) Urine Methadone, Qualitative NEG (NEG) Urine Barbiturates NEG (NEG) Urine Phencyclidine (PCP) Level NEG (NEG) Ur Amphetamine/Methamphetamine NEG (NEG) MDMA (Ecstasy) Screen NEG (NEG) Urine Benzodiazepines Screen NEG (NEG) Urine Cocaine Metabolite NEG (NEG) Urine Marijuana (THC) NEG (NEG) Erythrocyte Sedimentation Rate 13 mm/hr (0-21) RDW Standard Deviation 45.2 fL (36.4-46.3) RDW Coefficient of Variation 14.1 % (11.5-14.5) Anion Gap 7.0 mmol/L (3-11) Est Creatinine Clear Calc Drug Dose 35.8 ml/min Estimated GFR () 41.9 Estimated GFR (Non- 36.2 BUN/Creatinine Ratio 8.4 (10-20) Estimated Average Glucose 143 mg/dl Hemoglobin A1c 6.6 % (4.5-5.6) Calcium Level 8.1 mg/dl (8.5-10.1) Triglycerides Level 193 mg/dl (0-150) Cholesterol Level 181 mg/dl (0-200) HDL Cholesterol 58 mg/dl LDL Cholesterol, Calculated 84 mg/dl VLDL Cholesterol, Calculated 39 mg/dl Cholesterol/HDL Ratio 3.1 Test 07/03/16 11:44 Bedside Glucose 141 mg/dl (70-90) Imaging carotid doppler-No hemodynamically significant stenosis seen within the carotid arteries. Moderate plaque formation bilaterally. The MRI finding appears to be artifactual MRA neck-Suboptimal evaluation due to motion artifact. There is suggestion of 60-70% stenosis involving the proximal left internal carotid artery. This should be confirmed with follow-up carotid Doppler study. 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 Question stenosis within the left subclavian artery proximally may be due to motion artifact. MRI with and [id number] artifact. No definite acute intracranial abnormality. Atrophy and microvascular ischemic changes. Old right basal ganglia infarct. Impression 75 year old with slurred speech and headache elevated blood pressure on admission Plan 1. permissive hypertension 2. PT/OT/speech-does not have any needs at this time 3. add plavix 75 mg and aspirin 81 mg x 3 months then aspirin for a lifetime- confirmed with patient no aspirin allergy 4. ECHO pending 5. no carotid stenosis on imaging 6. may need ZIO patch as out patient to evaluate for arrhythmias 7. optimize DM, HTN, DL -primary care as outpatient will see patient after discharge in our office 3-4 weeks Krissy Becerril PAC schedule I have seen and discussed above patient with Dr Sterling Grace, neurology Above reviewed and agree patient seen and interviewed and imaging studies reviewed but echo still pending History is that of migraines but this event is atypical and was associated with transient deficits that are atypical for her prior events. imaging shows only an old event and no clear new one and nothing on vascular imaging to suggest a source of clot would add palvix to the asa as above and if echo is ok then discharge with follow up on neurology to reassess her progess and particularly to address the frequency and severity of her assumed migraines and to review any associated symptoms of neurologic type we may need cardionet/zio patch but this will be an outpatient decision discussed with Krissy Moreno and with Dr Sultana LORA
[2016-07-03] MEDS ORDERED: VNTHFA/IN INH (16:25)
[2016-07-03] MEDS ORDERED: PLV75 PO (16:25)
[2016-07-03] MEDS ORDERED: ASPEC81 PO (16:25)
[2016-07-03] MEDS ORDERED: MGNO400 PO (16:25)
--- NOTE | 2016-07-03 16:27 | Discharge Instructions ---
Discharge Instructions Admission Reason for Admission: TIA Discharge Discharge Diagnosis / Problem: Headache Discharge Goals Goal(s): Decrease discomfort, Improve disease control, Diagnostic testing Activity Recommendations Activity Limitations: resume your previous activity . Instructions / Follow-Up Instructions / Follow-Up Please follow up with Family Medicine Dr. Tse on July 11 at 1pm. Please follow up with Neurology Dr. Grace on July 25 at 3pm. Please take Plavix and Aspirin once a day for the next 3 months. Then you will just take Aspirin daily. You can try taking a magnesium supplement twice a day to help prevent headaches. You can take over the counter Excedrin migraine as needed for headaches. Current Hospital Diet Patient's current hospital diet: AHA Diet (Heart Healthy), Diabetes Type 2 Diet Discharge Diet Recommended Diet: AHA Diet (Heart Healthy), Diabetes Type 2 Diet Pending Studies Studies pending at discharge: no Laboratory Results Hemoglobin A1c Test 07/03/16 06:31 Range/Units Estimated Average Glucose 143 mg/dl Hemoglobin A1c 6.6 H 4.5-5.6 % Lipid Panel Test 07/03/16 06:31 Range/Units Triglycerides Level 193 H 0-150 mg/dl Cholesterol Level 181 0-200 mg/dl HDL Cholesterol 58 mg/dl Cholesterol/HDL Ratio 3.1 LDL Cholesterol, Calculated 84 mg/dl Medical Emergencies . Who to Call and When: Medical Emergencies: If at any time you feel your situation is an emergency, please call 911 immediately. . Non-Emergent Contact Non-Emergency issues call your: Primary Care Provider . . "Provider Documentation" section prepared by Delmi Iniguez. VTE Core Measure Inpt VTE Proph given/why not?: SCD's
[2016-07-03] MEDS ORDERED: IV FLUIDS COMPLETED PRN (17:00)
[2016-07-04] MEDS ORDERED: ASPIRIN 81 MG ECTAB PO SCH (09:00)
--- NOTE | 2016-07-04 17:50 | ECHOCARDIOGRAM REPORT ---
*NOTICE TO RECEIVING [employer] This information is strictly Confidential and protected under [place] law. [place] law prohibits you from making any further disclosure of this information unless further disclosure is expressly permitted by the written consent of the person to whom it pertains or is authorized by law. A general authorization for the release of medical or other information is not sufficient for this purpose. Hospital accepts no responsibility if the information is made available to any other person, INCLUDING THE PATIENT. Interpretation Summary * Name: CATHY BAR Study Date: 07/03/2016 12:59 PM BP: 152/72 mmHg * Patient Location: [facility]\S\N281\S\2 HR: 85 * : 1940 (M/d/yyyy) Gender: Female Height: 64 in * Age: 75 yrs Ethnicity: [place] Weight: 191 lb * Ordering Physician: Ronda Barhaona * Referring Physician: Lloyd Tse D.O. * Performed By: Ana Paula Molina RCS * * Reason For Study: TIA * BSA: 1.9 m2 * -- Conclusions -- * Sinsu rhythm was present at the time of the echocardiogram examination. * The left ventricular wall motion is normal. * There is mild concentric left ventricular hypertrophy. * Left ventricular systolic function is normal. * The LV Ejection Fraction = 65-70%. * The left atrium is mildly dilated. * Grade I diastolic dysfunction, (abnormal relaxation pattern). Procedure Details * A complete two-dimensional transthoracic echocardiogram was performed (2D, M-mode, Doppler and color flow Doppler). * A saline contrast injection was performed to assess for cardiac shunting. * The injection was performed through an intravenous line in the right arm. * The attending nurse who injected the saline contrast was DEEPTHI QUAN CPL, RN. * A total of 20 cc of agitated saline was given. Left Ventricle * The left ventricle is normal in size. * There is a prominant hypertrophied posteromedial papillary muscle (normal anatomical variant). * There is mild concentric left ventricular hypertrophy. * Left ventricular systolic function is normal. * Ejection Fraction = 65-70%. * The left ventricular wall motion is normal. Right Ventricle * The right ventricle is normal size. * The right ventricular systolic function is normal as assessed by tricuspid annular plane systolic excursion (TAPSE) (normal >1.5 cm). Atria * The left atrium is mildly dilated. * Right atrial size is normal. * There is no evidence of atrial septal defect, but resolution does not allow assessment for a patent foramen ovale. Mitral Valve * The mitral valve is normal. * There is no mitral valve stenosis. * Significant mitral regurgitation is absent. Tricuspid Valve * The tricuspid valve is normal. * There is no tricuspid stenosis. * Significant tricuspid regurgitation is absent. Aortic Valve * The aortic valve is trileaflet. * Aortic stenosis is absent. * There is no significant aortic regurgitation. Pulmonic Valve * The pulmonary valve is not well seen, but the Doppler examination is normal without significant regurgitation or stenosis. Great Vessels * The aortic root and proximal ascending aorta are normal sized. Pericardium/Pleural * There is no pericardial effusion. Great Vessels * Normal inferior vena cava diameter and respiratory variation suggests normal central venous pressure. Left Ventricular Diastolic Function * Grade I diastolic dysfunction, (abnormal relaxation pattern). MMode 2D Measurements and Calculations IVSd 1.6 cm IVSs 1.7 cm LVIDd 4.0 cm LVIDs 3.3 cm LVPWd 1.2 cm LVPWs 1.4 cm IVS/LVPW 1.4 FS 16.3 % EDV(Teich) 68.7 ml ESV(Teich) 44.8 ml EF(Teich) 34.8 % EDV(cubed) 62.5 ml ESV(cubed) 36.6 ml EF(cubed) 41.4 % % IVS thick 8.2 % % LVPW thick 15.9 % LV mass(C)d 204.1 grams LV mass(C)dI 106.4 grams/m\S\2 LV mass(C)s 190.0 grams LV mass(C)sI 99.0 grams/m\S\2 SV(Teich) 23.9 ml SI(Teich) 12.4 ml/m\S\2 SV(cubed) 25.9 ml SI(cubed) 13.5 ml/m\S\2 Ao root diam 3.4 cm Ao root area 9.0 cm\S\2 LA dimension 4.1 cm LA/Ao 1.2 LVOT diam 1.9 cm LVOT area 2.7 cm\S\2 LVAd ap4 32.0 cm\S\2 LVLd ap4 7.3 cm EDV(MOD-sp4) 113.3 ml EDV(sp4-el) 118.0 ml LVAs ap4 18.9 cm\S\2 LVLs ap4 6.1 cm ESV(MOD-sp4) 49.0 ml ESV(sp4-el) 49.7 ml EF(MOD-sp4) 56.8 % EF(sp4-el) 57.9 % LVAd ap2 27.5 cm\S\2 LVLd ap2 7.2 cm EDV(MOD-sp2) 86.3 ml EDV(sp2-el) 89.0 ml LVAs ap2 16.5 cm\S\2 LVLs ap2 5.8 cm ESV(MOD-sp2) 39.9 ml ESV(sp2-el) 40.2 ml EF(MOD-sp2) 53.8 % EF(sp2-el) 54.8 % LVLd %diff -1.81 % EDV(MOD-bp) 99.1 ml LVLs %diff -5.47 % ESV(MOD-bp) 42.9 ml EF(MOD-bp) 56.7 % SV(MOD-sp4) 64.4 ml SI(MOD-sp4) 33.6 ml/m\S\2 SV(MOD-sp2) 46.4 ml SI(MOD-sp2) 24.2 ml/m\S\2 SV(MOD-bp) 56.1 ml SI(MOD-bp) 29.3 ml/m\S\2 SV(sp4-el) 68.4 ml SI(sp4-el) 35.7 ml/m\S\2 SV(sp2-el) 48.8 ml SI(sp2-el) 25.5 ml/m\S\2 Doppler Measurements and Calculations MV E max logan 99.8 cm/sec MV A max logan 121.9 cm/sec MV E/A 0.82 MV P1/2t max logan 104.8 cm/sec MV P1/2t 76.3 msec MVA(P1/2t) 2.9 cm\S\2 MV dec slope 402.2 cm/sec\S\2 MV dec time 0.19 sec Ao V2 max 136.3 cm/sec Ao max PG 7.4 mmHg Ao max PG (full) 4.1 mmHg JUAN DAVID(V,A) 1.8 cm\S\2 JUAN DAVID(V,D) 1.8 cm\S\2 LV V1 max PG 3.4 mmHg LV V1 max 91.7 cm/sec PA V2 max 90.6 cm/sec PA max PG 3.3 mmHg PI max logan 169.5 cm/sec PI max PG 11.5 mmHg PI dec slope 185.8 cm/sec\S\2 PI P1/2t 267.2 msec TR max logan 236.0 cm/sec
--- NOTE | 2016-07-04 19:02 | Discharge Summary ---
Discharge Summary Date of Service Jul 04, 2016. Discharge Summary Admission Date: Jul 02, 2016 at 20:17 Discharge Date: Jul 03, 2016 Discharge Disposition: Home Principal Diagnosis: Headache, possible TIA vs migraine Procedures: TTE * Sinsu rhythm was present at the time of the echocardiogram examination. * The left ventricular wall motion is normal. * There is mild concentric left ventricular hypertrophy. * Left ventricular systolic function is normal. * The LV Ejection Fraction = 65-70%. * The left atrium is mildly dilated. * Grade I diastolic dysfunction, (abnormal relaxation pattern). 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 No acute intracranial findings. MRA brain Suboptimal evaluation of the intracranial vessels due to the motion artifact. However, no definite stenosis, occlusion, or aneurysm identified. MRI brain Motion artifact. No definite acute intracranial abnormality. Atrophy and microvascular ischemic changes. Old right basal ganglia infarct. MRA neck 1. Suboptimal evaluation due to motion artifact. 2. There is suggestion of 60-70% stenosis involving the proximal left internal carotid artery. This should be confirmed with follow-up carotid Doppler study. 2. 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 3. Question stenosis within the left subclavian artery proximally may be due to motion artifact. Carotid ultrasound No hemodynamically significant stenosis seen within the carotid arteries. Moderate plaque formation bilaterally. The MRI finding appears to be artifactual Consultations: Neurology Medication Reconciliation New Medications: Magnesium Oxide (Magnesium-Oxide) 400 Mg Tab 1 TAB PO BID for 30 Days, #60 TABS Aspirin (Aspirin EC Low Dose) 81 Mg Ectab 81 MG PO QAM for 30 Days, #30 TAB Clopidogrel Bisulfate (Clopidogrel) 75 Mg Tab 75 MG PO QAM for 30 Days, #30 TAB Changed Medications: Albuterol Hfa (Ventolin Hfa) 200 Puffs/59902 Mcg Aers 2-4 PUFFS INH Q6H PRN for SOB/Wheezing, #1 INHALER (Medication details modified) Continued Medications: Cetirizine (Zyrtec) 10 Mg Tab 10 MG PO DAILY PRN, 0 Refills Gabapentin (Neurontin) 100 Mg Cap 100 MG PO TID, CAP Hydroxyzine HCl (Hydroxyzine HCl) 25 Mg Tab 25 MG PO Q6H PRN for Itching Hyoscyamine Sulfate (Levsin) 0.125 Mg Tab 0.125 MG PO DAILY PRN, 0 Refills Levothyroxine Sodium (Synthroid) 75 Mcg Tab 75 MCG PO DAILY Loperamide Hcl (Imodium) 2 Mg Cap 2 MG PO BID PRN, 0 Refills Losartan Potassium (Cozaar) 25 Mg Tab 1 TAB PO DAILY for 30 Days, #30 TAB 5 Refills Melatonin (Melatonin) 10 Mg Tab 10 MG PO HS Metformin HCl (Metformin HCl) 500 Mg Tab 500 MG PO BID Mometasone Furoate (Nasal) (Mometasone Furoate) 50 Mcg/Act Spr 2 SPRAYS NA DAILY PRN for congestion Omeprazole (Prilosec) 20 Mg Cap 20 MG PO DAILY, CAP Simvastatin (Zocor) 40 Mg Tab 40 MG PO HS, 0 Refills Sitagliptin Phosphate (Januvia) 50 Mg Tab 1 TAB PO DAILY for 30 Days, #30 TAB 5 Refills Tramadol Hcl (Ultram) 50 Mg Tab 50 MG PO Q8HR PRN Admission Information HPI (per Admitting provider): 75 year old female who presents to the ER with headache. Patient reports 4 days ago she woke up with a frontal headache. Later in the day she had right sided facial droop and difficulty speaking and slurring of her words. reports this last 5 minutes and resolved on its own. Patient has history of CVA a few years ago that presented with similar symptoms. She reports she was never told to take aspirin and has an allergy to it. The same day she reports some nausea and vomiting. She denies hematemesis or coffee ground emesis. Patient denies any unilateral weakness, numbness, or tingling. She reports mild dizziness but no syncopal events. She denies any further episodes of facial droop or slurred speech. Patient reports her headache has been persistent. She reports it is located frontal, temporal, and on top of her head. She denies blurred or double vision. No chest pain or shortness of breath. No abdominal pain or diarrhea. She denies fever and chills. No urinary symptoms. In the ER, patient's BP was elevated 204/97 however is improving on it's own. Patient reports to feeling anxious when she first arrived. She reports her headache has improved. CT head is negative. Labs are unremarkable. Physical Exam (per Admitting): General Appearance: no apparent distress Head: normocephalic Eyes: normal inspection ENT: hearing grossly normal Neck: supple, no JVD Respiratory/Chest: lungs clear, normal breath sounds, no respiratory distress Cardiovascular: regular rate, rhythm, no edema, normal peripheral pulses Abdomen/GI: normal bowel sounds, non tender, soft Extremities/Musculoskelatal: normal inspection, no calf tenderness Neurologic/Psych: no motor/sensory deficits, alert, normal mood/affect, oriented x 3 Skin: normal color, warm/dry Hospital Course Patient was admitted with headache. BP was elevated on admission, but improved with continuation of losartan. There was concern for possible TIA vs migraine. Neurology was consulted. Stroke workup was unremarkable (see above studies). Patient was started on aspirin and Plavix for 3 months, and then daily aspirin thereafter. Headache improved during hospitalization. Patient deemed stable for discharge with Family Medicine and Neurology follow up. Patient was continued on the remainder of her home medications. PE on discharge: General- awake; alert; NAD Eyes- EOMI; no scleral icterus Neck- no stridor; trachea midline Lungs- CTA bilaterally; no wheezes/crackles Heart- RRR; no m/r/g Abdomen- soft; NTND; nBS Back- no gross abnormalities Extremities- no c/c/e; no deformity Neuro- no gross focal deficits Skin- no appreciable rash or bruise . Total time spent on discharge = This includes examination of the patient, discharge planning, medication reconciliation, and communication with other providers. Discharge Instructions Discharge Instructions Admission Reason for Admission: TIA Discharge Discharge Diagnosis / Problem: Headache Discharge Goals Goal(s): Decrease discomfort, Improve disease control, Diagnostic testing Activity Recommendations Activity Limitations: resume your previous activity . Instructions / Follow-Up Instructions / Follow-Up Please follow up with Family Medicine Dr. Tse on July 11 at 1pm. Please follow up with Neurology Dr. Grace on July 25 at 3pm. Please take Plavix and Aspirin once a day for the next 3 months. Then you will just take Aspirin daily. You can try taking a magnesium supplement twice a day to help prevent headaches. You can take over the counter Excedrin migraine as needed for headaches. Current Hospital Diet Patient's current hospital diet: AHA Diet (Heart Healthy), Diabetes Type 2 Diet Discharge Diet Recommended Diet: AHA Diet (Heart Healthy), Diabetes Type 2 Diet Pending Studies Studies pending at discharge: no Laboratory Results Hemoglobin A1c Test 07/03/16 06:31 Range/Units Estimated Average Glucose 143 mg/dl Hemoglobin A1c 6.6 H 4.5-5.6 % Lipid Panel Test 07/03/16 06:31 Range/Units Triglycerides Level 193 H 0-150 mg/dl Cholesterol Level 181 0-200 mg/dl HDL Cholesterol 58 mg/dl Cholesterol/HDL Ratio 3.1 LDL Cholesterol, Calculated 84 mg/dl Medical Emergencies . Who to Call and When: Medical Emergencies: If at any time you feel your situation is an emergency, please call 911 immediately. . Non-Emergent Contact Non-Emergency issues call your: Primary Care Provider . . "Provider Documentation" section prepared by Delmi Iniguez. VTE Core Measure Inpt VTE Proph given/why not?: SCD's Additional Copies To Lloyd Tse D.O.
[2016-07-06 08:59] LABS: COD UR NEGATIVE NG/ML (CUTOFF=50); HYDROCOD UR NEGATIVE NG/ML (CUTOFF=50); HYDROMOR UR NEGATIVE NG/ML (CUTOFF=50); MORPHINE UR 1740 NG/ML (CUTOFF=50); NORHYDROCODONE CONF UR NEGATIVE NG/ML (CUTOFF=50); OXYMORPH UR NEGATIVE NG/ML (CUTOFF=50)
== END 2016-07-03 17:00 | disposition home or self-care (01) | DRG 69 ==
LOC: ENRESERVDT → ENRESERVTM → C.EDB 12:38 → C.MED 20:17
PROVIDERS: ADMIT Internal Medicine; ATTEND Internal Medicine
DX: G45.9 Transient cerebral ischemic attack, unspecified (principal); G43.909 Migraine, unspecified, not intractable, without status migrainosus; N18.3 Chronic kidney disease, stage 3 (moderate); K21.9 Gastro-esophageal reflux disease without esophagitis; R29.810 Facial weakness; J45.909 Unspecified asthma, uncomplicated; E03.9 Hypothyroidism, unspecified; E78.5 Hyperlipidemia, unspecified; I12.9 Hypertensive chronic kidney disease with stage 1 through stage 4 chronic kidney disease, or unspecified chronic kidney disease; E11.22 Type 2 diabetes mellitus with diabetic chronic kidney disease; I51.7 Cardiomegaly; K58.9 Irritable bowel syndrome, unspecified; H40.9 Unspecified glaucoma; R47.81 Slurred speech; R11.2 Nausea with vomiting, unspecified; Z79.84 Long term (current) use of oral hypoglycemic drugs; Z86.73 Personal history of transient ischemic attack (TIA), and cerebral infarction without residual deficits; Z96.651 Presence of right artificial knee joint; Z98.1 Arthrodesis status; Z79.899 Other long term (current) drug therapy; Z79.891 Long term (current) use of opiate analgesic